=== PATIENT | male | born 1990 | race Hispanic/Latino ===

== ENCOUNTER → 2023-09-11 | Outpatient (REF) | payer OTHER | LOC: CT 15:33 | PROVIDERS: ATTEND Family Medicine | DX: S90.31XD Contusion of right foot, subsequent encounter (principal) ==

== ENCOUNTER → 2023-12-04 | Outpatient (REF) | payer OTHER | LOC: MRI 13:39 | PROVIDERS: ATTEND Family Medicine | DX: S90.31XD Contusion of right foot, subsequent encounter (principal) ==